=== PATIENT | male | born 2005 | race Caucasian/White ===

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

== ENCOUNTER 2025-04-07 16:56 | Emergency (ER) | payer OTHER, MEDICAID, SELFPAY ==
[2025-04-07 17:29] VITALS: BP 132/77; PULSE 78; RESP 16; TEMP 36.8; O2SAT 99
--- NOTE | 2025-04-07 17:44 | PC.NURSE ---
Pt to intake desk and states I am just letting you know I am gonna leave. I will go to Urgent Care tomorrow or something. Pt declined to be seen after encouragement, pt states he will return with worsening or concerning sx's. Pt ambulated out in NAD. Steady gait.
--- OUTSIDE RECORDS SUMMARY | 2025-04-07 19:08 | XMS_ITS | Continuity of Care Document ---
Author Name [facility] Organization [facility] Care Team Providers Care Stars Analytical Lead Name Role Phone [facility] Unavailable Unavailable Vital Signs Combined list of inpatient and outpatient Vital Signs from [facility] and [facility], ranging from 12 months to all on record, depending upon the facility. Vital Sign Value Date Comments Source Systolic Blood Pressure 119 mm[Hg] 02/18/2024 13:15:[address] [place] [address] Diastolic Blood Pressure 73 mm[Hg] 02/18/2024 13:15:[address] [place] [address] Peripheral Pulse Rate 99 bpm 02/18/2024 13:15:[address] [place] [address] Procedures Combined list of: 1) Procedures from [facility] facilities going back up to thelast 18 months, not all [place] non-surgical procedures are included; 2) All procedures from the [facility] facilities. Procedure Procedure Type Code Date Perfomer Comments Sourc e No data available for this section Ambulatory P harmacy Social History Combined list of available smoking, tobacco, and other social history from [facility] and [facility] facilities. Social History Type Response Date Comment Sourc e Sex Representation Male (finding) 02/11/2024 Un known Organization Sexual Orientation Ambula tory Pharmacy Gender identity Ambulator y Pharmacy Assessment and Plan Combined list of future care activities from [facility] and [facility] facilities (e.g., assessment and plan notes, appointments, orders, and referrals). Additional future care activities may be listed in the Plan of Care section. Result Assessment and Plan Date Source Assessment and Plan Extracted from:Title : Education Note Author: REAL BHARDWAJ Date: 02/18/24 04/08/[address] [place] [address] Functional Status Combined list of recent functional and cognitive assessments recorded at [facility] Functional [place] Measurement (FIM) Scale: 1 = Total Assistance (Subject = 0% +), 2 = Maximal Assistance (Subject = 25% +), 3 = Moderate Assistance (Subject = 50% +), 4 = Minimal Assistance (Subject = 75% +), 5 = Supervision, 6 = Modified [place] (Device), 7 = Complete [place] (Timely, Safely). Assessment Date/Time Source Assessment Type Assessment Skill Assessment Score Assessment Details No data available for this section
--- OUTSIDE RECORDS SUMMARY | 2025-04-07 19:09 | XMS_ITS | Clinical Summary ---
Author Organization [facility] Address [address] [place] [address] Phone Care Team Providers Care Clinical Nurse Leader Name Role Phone Provider, Unknown Primary Care Provider Unavaila ble Social History Tobacco Use Types Packs/Day Years Used Date Smoking Tobacco: Never Assessed Sex and Gender Information Value Date Recorded Sex Assigned at Not on file Legal Sex Male 5:37 PM [employer] Gender Identity Not on file Sexual Orientation Not on file Plan of Treatment Not on file Insurance [facility] MEDICAID [place] Care Teams Clinical Nurse Leader Relationship Specialty Start Date End Date Provider, Unknown UNKNOWN PCP - General 02/05/22
--- OUTSIDE RECORDS SUMMARY | 2025-04-07 19:09 | XMS_ITS ---
Author Organization Unknown Address [address] [place] [phone] Phone Care Team Providers Care Master Esthetician Name Role Phone SANJIV Hargrove Attending Unavailable NO PHYSICIAN Primary Unavailable Results URINALYSIS NON-AUTO W/O MICR O - Collect Date/Time: 10/31/2023 13:32 [facility] ID: [id number] [address] [place], [place], [phone] LOINC: Test Value Unit Reference Range Code Code System Flag TEST NAME URINALYSIS Color YELLOW Clarity CLEAR Spec Grav 1.020 NORMAL: 1.001-1.035 PH 6.0 NORMAL: 5 - 6 Leuk Est NEGATIVE NORMAL: NEGATIVE Nitrates Negative NORMAL: NEGATIVE Protein NEGATIVE NORMAL: NEGATIVE Glucose NEGATIVE NORMAL: NEGATIVE Manual Clinitest NOT APPLICABLE Ketones NEGATIVE NORMAL: NEGATIVE Urobilinogen NORMAL NORMAL: 0-1 mg/dl Bilirubin NEGATIVE NORMAL: NEGATIVE Blood NEGATIVE NORMAL: NEGATIVE Social History Type Status Start Date End Date Code Code Syst em Sex Male Vital Signs Vital Sign Value Unit [place]it[place] Value Scituate Unit Date/Time Recent/Initial? Code Code System Body Mass Index 23.24 kg/m2 10/31/2023 13:28 Initial 84005 -5 [facility] Body Mass Index Percentile 60 % 10/31/2023 13:28 Initial 83219 -9 LOINC Systolic Blood Pressure 122 mm[Hg] 10/31/2023 13:28 Initial 8480- 6 LOINC Diastolic Blood Pressure 66 mm[Hg] 10/31/2023 13:28 Initial 8462- 4 LOINC Body Surface Area 1.91 m2 10/31/2023 13:28 Initial 3140- 1 LOINC Height 177.800 0 cm 70.00 in 10/31/2023 13:28 Initial 8302- 2 LOINC Pulse 66.0 /min 10/31/2023 13:28 Initial 8867- 4 LOINC Temperature 36.9 Zaira 98.4 F 10/31/19 13:28 Initial 8310- 5 LOINC Weight 73.48 kg 162.00 lbs 10/31/2023 13:28 Initial 01981 -7 LOINC Medications Medication Start Date End Date Route Frequency Dose Code Code System Medication Instructions Home Meds Doxycycline 100MG Oral Capsule 10/31/2023 Unknown By mouth Twice a day 1 TABLET 7386026 RxNorm 1 TABLET By mouth Twice a day for 7 days Assessment Diagnostics: Urinalysis Urine gc, chlamydia and trich testing ordered. Assessment/Plan: 1. Chlamydia exposure -Doxycycline as prescribed to completion. -No sexual contact until all tests are completed and resulted and all indicated treatment is completed. -If any STD tests are positive inform all partners or discuss with your local health department and provide names of sexual partners so they can ensure appropriate treatment. -Use condoms when resuming sex. -Retesting within 3 months. 2. High Risk Sexual Behavior -HIV, HSV and hepatitis testing declined. -Encouraged safe sex practices. 3. Dysuria Differentials: UTI, STD Follow-up: PCP or CC in 2 days if not improving, otherwise follow-up with PCP as needed. ER if any symptoms become severe. * This plan has been reviewed with the patient. Questions and concerns addressed. Patient verbalized understanding of the treatment plan and the need for follow up. This examination was transcribed using the App[employer] voice recognition system without a human research development director. To expedite patient care, this report has not been adjusted for typographical, or medical, or syntax by a trained hospital medical assistant. Hospital Discharge Instructions Should you have any questions prior to discharge, please contact a member of your healthcare team. If you have left the hospital and have any questions, please contact your primary care physician. Reason For Referral No Data Found Plan of Treatment Future Order Description Future Order Date Futu re Order Loinc: TRICHOMONAS VAGINALIS MALE RNA QUAL 10/31/2023 LOINC: 68133-0 GC PCR [facility] 10/31/2023 LOINC: 65105-6 CHLAMYDIA PCR [facility] 10/31/2023 LOINC: 72751- 5 Encounters Encounter Diagnosis Start Date Code Code Sys tem High risk heterosexual behavior 10/31/2023 [id number] SNOMED-CT Personal Care Team Section Progress Notes [facility] 10/31/2023 14:38 Date of Service: 10/31/2023 [facility] Visit MARLINE Lanza Chief Complaint: PERSONAL History of Present Illness: Age: 17 years The patient is a 17-year-old male presenting to [facility] today for STD exposure to chlamydia. He is currently sexually active with one partner and does not use condoms. He has a history of chlamydia infection a few months ago and completed treatment and was re-tested a few weeks later with a negative result. He does complain of an irritated feeling when he urinates. Otherwise denies any other symptoms. Patient denies fever/chills, headache, dizziness, ear pain, nasal congestion/drainage, sore throat, cough, chest pain/tightness/heaviness, shortness of breath, wheezing, abdominal pain, and/or nausea/vomiting/diarrhea. PCP is Natalie Hawkins. Tobacco use: vapes Marijuana use: current user Allergy Table: No Allergies Available Vital Signs: This Visit HtWt Date/Time BP (mm/Hg) BP Position/Site Heart Rate Resp Temp (F) SPO2% Pain Score Height (in) Weight (lbs/ozs) BMI Head Cir (cm) 10/31/2023 13:28 122/66 Sitting/Left Arm 66 98.4 Tympanic 70 in 162.0 23.24 PHYSICAL EXAM: GENERAL: Alert, well-appearing, in no acute distress. nontoxic. RESPIRATORY: Normal respiratory effort. Lungs were clear to auscultation. CARDIOVASCULAR: Heart regular rate and rhythm without murmurs or gallops. ABDOMEN: Soft, non-distended, non- tender. Bowel sounds were normal. No hepatosplenomegaly. No rebound or guarding. No CVA or suprapubic tenderness noted. NEUROLOGIC: Alert and oriented. Speech clear. Responding appropriately to exam. Moving extremities equally. Gait steady. SKIN: warm and dry, well perfused. Capillary refill less than 3 seconds. PSYCHIATRIC: Cooperative. Normal memory. Conversant, normal affect. Lab Results: This Visit Test Results Units Reference Range Ordered Collected Status TEST NAME URINALYSIS URINALYSIS 10/31/2023 13:32 10/31/2023 13:32 final Color YELLOW YELLOW 10/31/2023 13:32 10/31/2023 13:32 final Clarity CLEAR CLEAR 10/31/2023 13:32 10/31/2023 13:32 final Spec Grav 1.020 1.020 NORMAL: 1.001-1.035 10/31/2023 13:32 10/31/2023 13:32 final PH 6.0 6.0 NORMAL: 5 - 6 10/31/2023 13:32 10/31/2023 13:32 final Leuk Est NEGATIVE NEGATIVE NORMAL: NEGATIVE 10/31/2023 13:32 10/31/2023 13:32 final Nitrates Negative Negative NORMAL: NEGATIVE 10/31/2023 13:32 10/31/2023 13:32 final Protein NEGATIVE NEGATIVE NORMAL: NEGATIVE 10/31/2023 13:32 10/31/2023 13:32 final Glucose NEGATIVE NEGATIVE NORMAL: NEGATIVE 10/31/2023 13:32 10/31/2023 13:32 final Manual Clinitest NOT APPLICABLE NOT APPLICABLE 10/31/2023 13:32 10/31/2023 13:32 final Ketones NEGATIVE NEGATIVE NORMAL: NEGATIVE 10/31/2023 13:32 10/31/2023 13:32 final Urobilinogen NORMAL NORMAL NORMAL: 0-1 mg/dl 10/31/2023 13:32 10/31/2023 13:32 final Bilirubin NEGATIVE NEGATIVE NORMAL: NEGATIVE 10/31/2023 13:32 10/31/2023 13:32 final Blood NEGATIVE NEGATIVE NORMAL: NEGATIVE 10/31/2023 13:32 10/31/2023 13:32 final Diagnostics: Urinalysis Urine gc, chlamydia and trich testing ordered. Assessment/Plan: 1. Chlamydia exposure -Doxycycline as prescribed to completion. -No sexual contact until all tests are completed and resulted and all indicated treatment is completed. -If any STD tests are positive inform all partners or discuss with your local health department and provide names of sexual partners so they can ensure appropriate treatment. -Use condoms when resuming sex. -Retesting within 3 months. 2. High Risk Sexual Behavior -HIV, HSV and hepatitis testing declined. -Encouraged safe sex practices. 3. Dysuria Differentials: UTI, STD Follow-up: PCP or CC in 2 days if not improving, otherwise follow-up with PCP as needed. ER if any symptoms become severe. * This plan has been reviewed with the patient. Questions and concerns addressed. Patient verbalized understanding of the treatment plan and the need for follow up. This examination was transcribed using the [employer] voice recognition system without a human research development director. To expedite patient care, this report has not been adjusted for typographical, or medical, or syntax by a trained hospital medical assistant. Meds Given This Visit: Meds ordered and administered this visit: No Current Medications Available Discharge Med List: Discharge Medications Medication Special Instructions Start Date Prescribing MD Doxycycline 100MG Oral Capsule 1 TABLET By mouth Twice a day for 7 days 10/31/2023 SANJIV Hargrove
--- OUTSIDE RECORDS SUMMARY | 2025-04-07 19:09 | XMS_ITS | Encounter Summary ---
Author Organization [facility] Address [address] [place] [address] Phone Care Team Providers Care Director Motion Picture Name Role Phone Provider, Unknown Primary Care Provider Unavaila ble Encounter Details Date Type Department Care Team (Late st Contact Info) Description 02/19/2022 Lab [facility] [address] [place] [address] Angella Angel MD [address] [place] [address] Contact with and (suspected) exposure to covid-19 Social History Tobacco Use Types Packs/Day Years Used Date Smoking Tobacco: Never Assessed Sex and Gender Information Value Date Recorded Sex Assigned at Not on file Legal Sex Male 5:37 PM DAY CARE HOME MOTHER Gender Identity Not on file Sexual Orientation Not on file documented as of this encounter Plan of Treatment Not on file documented as of this encounter Procedures Procedure Name Priority Date/Time Associated Diagnosis Comments SARS-COV-2 BY MOLECULAR Routine 02/19/2022 11:04 AM DAY CARE HOME MOTHER Contact with and (suspected) exposure to covid-19 documented in this encounter Results * SARS-COV-2 BY MOLECULAR (02/19/2022 11:04 AM DAY CARE HOME MOTHER) SARSCOV2 NOT DETECTED (Referen ce Range for this test is Not Detected ) [facility] THERMOFISHER FAST DX 02/21/2022 9:22 PM DAY CARE HOME MOTHER [facility] Comment:This test was perfor med by a RT-PCR method. Other NASAL STRUCTURE / Unknown Non-Phlebotomy Collection / Unknown 02/19/2022 11:04 AM DAY CARE HOME MOTHER 02/19/2022 5:40 PM DAY CARE HOME MOTHER Narrative [facility] - 02/21/2022 9:22 PM DAY CARE HOME MOTHER Authorized Fact Sheets about this test for providers and patients are available at: https://www.fda.gov/medical-devices/nxvybxbdz-xsgpfdrqek-xgjxnug-devices/emergen cy-us e-authorizations us Angella Angel MD MICROBIOLOGY - GENERAL ORDERAB LES Final Result [facility] [address] [place] [address], documented in this encounter Visit Diagnoses Diagnosis Contact with and (suspected) exposure to covid-19 documented in this encounter Additional Health Concerns Infection Onset Date Last Indicated Resolved Time COVID - 19 02/19/2022 02/19/2022 03/01/2022 12:1 6 AM DAY CARE HOME MOTHER Respiratory Rule-Out 02/22/2022 02/22/2022 022 7:31 PM DAY CARE HOME MOTHER documented as of this encounter Care Teams Director Motion Picture Relationship Specialty Start Date End Date Provider, Unknown UNKNOWN PCP - General 02/05/22 documented as of this encounter
--- OUTSIDE RECORDS SUMMARY | 2025-04-07 19:09 | XMS_ITS | Encounter Summary ---
Author Organization [facility] Address [address] [place] [address] Care Team Providers Care Agent Contract Clerk Name Role Phone Tori Vieira NP Primary Care Provider Unavailabl e None, Provider Primary Care Provider Unavaila ble Encounter Details Date Type Department Care Team (Late st Contact Info) Description 08/25/2020 FINXI Message [facility] Patient Accounts [address] [place] [address] Nadine, [facility] Provider Notice of account balance Social History Tobacco Use Types Packs/Day Years Used Date Smoking Tobacco: Never Smokeless Tobacco: Never Alcohol Use Standard Drinks/Week Comments Never 0 (1 standard drink = 0.6 oz pur e alcohol) AUDIT-C Answer Date Recorded Q1: How often do you have a drink containing alc ohol? 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 No / Unsure 08/18/2020 9:08 AM CDT documented as of this encounter Plan of Treatment Not on file documented as of this encounter Visit Diagnoses Not on filedocumented in this encounter Additional Health Concerns Infection Onset Date Last Indicated Resolved Time COVID-19 Rule Out 01/31/2021 01/31/2021 02/01/2021 1:47 AM CDT Assessment Noted Time PHQ-9 Depression Total Score: 6 07/23/19 1:13 PM CDT documented as of this encounter Care Teams Agent Contract Clerk Relationship Specialty Start Date End Date Tori Vieira, PAL PCP - General NURSE PRACTITIONER 05/30/20 12/01/23 None, Provider, PCP - General UNKNOWN PHYSICIAN SPECIALTY 12/02/23 documented as of this encounter
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
--- OUTSIDE RECORDS SUMMARY | 2025-04-07 19:09 | XMS_ITS | Encounter Summary ---
Author Organization [facility] Address [address] [place] [address] Phone Care Team Providers Care Entry Level Chemist Name Role Phone Provider, Unknown Primary Care Provider Unavaila ble Encounter Details Date Type Department Care Team (Late st Contact Info) Description 02/24/2022 Lab Requisition [facility] Laboratory Services [address] [place] [id number] Angella Angel MD [address] [place] [address] Acute pharyngitis, unspecified Social History Tobacco Use Types Packs/Day Years Used Date Smoking Tobacco: Never Assessed Sex and Gender Information Value Date Recorded Sex Assigned at Not on file 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 Gender Identity Not on file Sexual Orientation Not on file documented as of this encounter Plan of Treatment Not on file documented as of this encounter Procedures Procedure Name Priority Date/Time Associated Diagnosis Comments GROUP A STREP SCREEN RAPID, CONFIRM IF NEGATIVE Routine 02/24/2022 1:00 PM TRANSPORTATION EQUIPMENT PAINTER Acute pharyngitis, unspecified CULTURE, GRP A STREPTOCOCCUS, CULT ONLY Routine 02/24/2022 1:00 PM TRANSPORTATION EQUIPMENT PAINTER Acute pharyngitis, unspecified documented in this encounter Results * CULTURE, GRP A STREPTOCOCCUS, CULT ONLY (02/24/2022 1:00 PM TRANSPORTATION EQUIPMENT PAINTER) CULTURE RESULTS NO STREP PYOGENES (GROUP A BETA HEMOLYTIC STREP) ISOLATED AFTER 2 DAYS 02/27/2022 8:51 AM TRANSPORTATION EQUIPMENT PAINTER [facility] Other SPECIMEN FROM THROAT / Unknown Non-Phlebotomy Collection / Unknown 02/24/2022 1:00 PM TRANSPORTATION EQUIPMENT PAINTER 02/24/2022 3:59 PM TRANSPORTATION EQUIPMENT PAINTER us Angella Angel MD MICROBIOLOGY - GENERAL ORDERAB LES Final Result Performing Organization Address [facility]/ZIP Co de Phone Number [facility] [address] [place] [address], [place] [phone] * GROUP A STREP SCREEN RPD, CULTURE IF NEG (02/24/2022 1:00 PM TRANSPORTATION EQUIPMENT PAINTER) MICRO TEST RESULT Presumptive Negative for Group A Streptococcus Presumptive Negative for Group A Streptococcus [facility] QUIDEL SUMA B 02/24/2022 4:41 PM TRANSPORTATION EQUIPMENT PAINTER [facility] Other SPECIMEN FROM THROAT / Unknown Non-Phlebotomy Collection / Unknown 02/24/2022 1:00 PM TRANSPORTATION EQUIPMENT PAINTER 02/24/2022 3:59 PM TRANSPORTATION EQUIPMENT PAINTER us Angella Angel MD MICROBIOLOGY - GENERAL ORDERAB LES Final Result Performing Organization Address [facility] Co de Phone Number [place] [phone] [place] [address], [place] [phone] documented in this encounter Visit Diagnoses Diagnosis Acute pharyngitis, unspecified documented in this encounter Additional Health Concerns Infection Onset Date Last Indicated Resolved Time COVID - 19 02/19/2022 02/19/2022 03/01/2022 12:1 6 AM TRANSPORTATION EQUIPMENT PAINTER documented as of this encounter Care Teams Entry Level Chemist Relationship Specialty Start Date End Date Provider, Unknown UNKNOWN PCP - General 02/05/22 documented as of this encounter
--- OUTSIDE RECORDS SUMMARY | 2025-04-07 19:09 | XMS_ITS | Encounter Summary ---
Author Organization [facility] Address [address] [place] [address] Phone Care Team Providers Care Lift Truck Operator Name Role Phone Provider, Unknown Primary Care Provider Unavaila ble Encounter Details Date Type Department Care Team (Late st Contact Info) Description 02/22/2022 Lab Requisition [facility] Laboratory Services [address] [place] [address] Marcos Mejía, DO [address] [place] [address] Headache, unspecified; Myalgia, other site Social History Tobacco Use Types Packs/Day Years Used Date Smoking Tobacco: Never Assessed Sex and Gender Information Value Date Recorded Sex Assigned at Not on file Legal Sex Male 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 Gender Identity Not on file Sexual Orientation Not on file documented as of this encounter Plan of Treatment Not on file documented as of this encounter Procedures Procedure Name Priority Date/Time Associated Diagnosis Comments INFLUENZA A & B ANTIGENS RAPID Routine 02/22/2022 5:00 PM ODD JOB LABORER Headache, unspecified Myalgia, other site documented in this encounter Results * INFLUENZA A & B ANTIGENS RAPID (02/22/2022 5:00 PM ODD JOB LABORER) Rapid Influenza A PRESUMPTIVE NEGATIVE FOR THE PRESENCE OF INFLUENZA A ANTIGEN PRESUMPTIVE NEGATIVE FOR THE PRESENCE OF INFLUENZA A ANTIGEN, INDETERMINATE [facility] QUIDEL SUMA A 02/22/2022 7:31 PM ODD JOB LABORER [facility] Rapid Influenza B PRESUMPTIVE NEGATIVE FOR THE PRESENCE OF INFLUENZA B ANTIGEN PRESUMPTIVE NEGATIVE FOR THE PRESENCE OF INFLUENZA B ANTIGEN, INDETERMINATE [facility] QUIDEL SUMA A 02/22/2022 7:31 PM ODD JOB LABORER [facility] Other No Phlebotomy Charged / Unknown 02/22/2022 5:00 PM ODD JOB LABORER 02/22/2022 6:01 PM ODD JOB LABORER Marcos Mejía DO MICROBIOLOGY - GENERAL O RDERABLES Final Result Performing Organization Address [facility]/State/[facility] Co de Phone Number [address] [address], documented in this encounter Visit Diagnoses Diagnosis Headache, unspecified Myalgia, other site documented in this encounter Additional Health Concerns Infection Onset Date Last Indicated Resolved Time COVID - 19 02/19/2022 02/19/2022 03/01/2022 12:1 6 AM ODD JOB LABORER Respiratory Rule-Out 02/22/2022 02/22/2022 022 7:31 PM ODD JOB LABORER documented as of this encounter Care Teams Lift Truck Operator Relationship Specialty Start Date End Date Provider, Unknown UNKNOWN PCP - General 02/05/22 documented as of this encounter
--- OUTSIDE RECORDS SUMMARY | 2025-04-07 19:09 | XMS_ITS | Clinical Summary ---
Author Organization [facility] Address [address] [place] [address] Care Team Providers Care Exterior Designer Name Role Phone Uzma Oliva MD Primary Care Provider [phone] Source Comments [facility],non-owned Affiliates and Associated Physician Practices is amultiple site organization consisting of ambulatory clinics and hospital sitesin [place], [place], [place] and [place]. This disclosure is being madepursuant to the Care Everywhere program and may not contain all information available regarding this patient. Last updated 17.[facility] Allergies No known active allergies Medications * Be aware that medications may not be up to date on this document. Alwaysverify current medications with the patient. omeprazole (PRILOSEC) 20 MG capsule Take 1 (one) capsule by mouth once daily 30 capsule 3 1 Active Additional Information Patient not taking.Reported on 01/24/2021 citalopram (CELEXA) 20 MG tablet Take 20mg daily for 2 weeks, then 10mg daily for 2 weeks. 21 tablet 1 Active sertraline (ZOLOFT) 25 MG tablet Take 1 (one) tablet by mouth once daily 30 tablet 1 Active Respiratory Therapy Supplies (NEBULIZER/TUBI NG/MOUTHPIECE) KIT Use 1 kit once daily as needed 1 kit 1 1 Active albuterol (ACCUNEB) 1.25 MG/3ML nebulizer solution Inhale 3 mL by mouth every 4 hours as needed 1 Active Active Problems Problem Noted Date Diagnosed Date Nausea and vomiting 07/14/2020 Anxiety 07/14/2020 Mild intermittent asthma without complication Overview (12/05/2015): Flare ups in fall and spring, uses inhaler during football practice as well. Asthma Overview (12/11/2017): only needs albuterol when ill and sometimes when physically acitve Immunizations Immunization Administration Dates Next Due DTAP 5 PERTUSSIS ANTIGENS 11/20/2010,,06/26/2005, 6,02/21/2005 DTAP/IPV 11/20/2010, 6,04/24/2005, 5,2004 HEP B VACCINE, PED/ADOL 03/25/2006,04/24/2005, HIB-PRP-T 4 DOSE 03/25/2006,04/24/2005, 5 MENINGOCOCCAL ACWY (MCV4P) VAC IM 11/17/2016 MMR 11/20/2010,03/25/2006 MMR/VARICELLA 11/20/2010,03/25/2006 POLIO IPV 11/20/2010, 6,04/24/2005, 5 TDAP (7yrs+) 11/17/2016 VARICELLA 11/20/2010,01/02/2006 Family History Medical History Relation Name Comments Asthma Brother Cancer Maternal Grandfather Diabetes - Type 2 Maternal Grandfather Cancer Maternal Grandmother Asthma Mother CAD (Coronary Artery Disease) Paternal Grandfather Cancer Paternal Grandfather Diabetes - Type 2 Paternal Grandfather High Blood Pressure Paternal Grandfather High Cholesterol Paternal Grandfather Relation Name Status Comments Brother Maternal Grandfather Maternal Grandmother Mother Alive Paternal Grandfather Social History Tobacco Use Types Packs/Day Years Used Date Smoking Tobacco: Never Smokeless Tobacco: Never PHQ-2 Answer Date Recorded PHQ2 TOTAL SCORE 4 01/25/2021 Sex and Gender Information Value Date Recorded Sex Assigned at Not on file Legal Sex Male 11:58 AM CDT Gender Identity Not on file Sexual Orientation Not on file Last Filed Vital Signs Vital Sign Reading Time Taken Comments Blood Pressure 99/72 08/22/2020 1:15 PM CDT Pulse 65 08/22/2020 1:15 PM CDT Temperature 37 C (98.6 F) 01/24/2021 1:04 PM CDT Respiratory Rate 12 08/22/2020 1:15 PM CDT Oxygen Saturation 100% 08/22/2020 1:15 PM CDT Inhaled Oxygen Concentration - - Weight 61.9 kg (136 lb 6.4 oz) 01/24/2021 1:04 P M CDT Height 175 cm (5' 8.9) 08/22/2020 11:54 AM CDT Body Mass Index - - Plan of Treatment Health Maintenance Due Date Last Done Comments HIV SCREENING 12/22/2019 HPV VACCINE (1 - Male 3-dose series) 12/22/2019 MENINGOCOCCAL (Group B) VACCINE SHARED DECISION-MAKING (1 of 2 - Standard) 2020 HEPATITIS C SCREENING 12/17/2022 PNEUMOCOCCAL VACCINE (1 of 2 - PCV) 12/22/2023 DEPRESSION SCREENING 04/08/2024 COVID-19 VACCINE (1 - season) 2024 INFLUENZA VACCINE (#1) 2024 DTAP/TDAP/TD VACCINES (7 - Td or Tdap) 11/17/2026 11/17/2016, 11/20/2010, 11/20/2010, Additional history exists ZOSTER VACCINE (1 of 2) 2054 HEPATITIS B VACCINE Completed 03/25/2006, 04/24/2005, 02/21/2005 HIB VACCINE Completed 03/25/2006, 04/08, 02/21/2005 MENINGOCOCCAL GROUPS A/C/Y/W VACCINE Aged Out 11/17/2016 No longer eligible based on patient's age to complete this topic Insurance [facility] MEDICAID [facility] ANTHEM [facility] C[facility] C[facility] MEDICAID Care Teams Exterior Designer Relationship Specialty Start Date End Date Uzma Oliva MD [address] [place] [phone] PCP - General Pediatrics 01/24/21
--- OUTSIDE RECORDS SUMMARY | 2025-04-07 19:09 | XMS_ITS | Encounter Summary ---
Author Organization [facility] Address [address] [place] [address] Care Team Providers Care Strip Roller Name Role Phone Uzma Oliva MD Primary Care Provider Reason for Visit * Reason Onset Date Comments Results 08/25/2020 Encounter Details Date Type Department Care Team (Late st Contact Info) Description 08/25/2020 Telephone [facility] - [address] [place] [phone] Iza Dubose MD [address] [place] [id number] Results Social History Tobacco Use Types Packs/Day Years Used Date Smoking Tobacco: Never Smokeless Tobacco: Never Sex and Gender Information Value Date Recorded Sex Assigned at Not on file Legal Sex Male 11:58 AM CDT Gender Identity Not on file Sexual Orientation Not on file documented as of this encounter Functional Status * Is person deaf or have serious hearing difficulty? Answer Date of Assessment Author No 08/22/2020 12:59 PM CDT Aiyana Fowler RN * Is person blind or have serious difficulty seeing? Answer Date of Assessment Author No 08/22/2020 12:59 PM CDT Aiyana Fowler RN * Does person have serious difficulty walking/climbing stairs? Answer Date of Assessment Author No 08/22/2020 12:59 PM CDT Aiyana Fowler RN * Does person have difficulty dressing/bathing? Answer Date of Assessment Author No 08/22/2020 12:59 PM CDT Kisner, Aiyana M, RN * Does person have difficulty doing errands alone? Answer Date of Assessment Author Yes 08/22/2020 12:59 PM CDT Aiyana Fowler RN documented as of this encounter Mental Status * Does person have difficulty concentrating/remembering/making decisions? Answer Entry Date Author No 08/22/2020 12:59 PM CDT Aiyana Fowler RN documented in this encounter Miscellaneous Notes * Telephone Encounter - Victoria Sanchez - 08/26/2020 8:32 AM CDT Spoke with mom, notified her of negative lab and biopsy results. Mom stated that she doesn't have any questions at this time. * Telephone Encounter - Lili Jules RN - 08/26/2020 8:22 AM CDT Left a requesting family call the office. * Telephone Encounter - Iza Dubose MD - 08/25/2020 4:57 PM CDT Labs: lipase, sed rate, celiac are Negative. Biopsies are back too and they too are Fine. documented in this encounter Plan of Treatment Not on file documented as of this encounter Visit Diagnoses Not on filedocumented in this encounter Care Teams Strip Roller Relationship Specialty Start Date End Date Uzma Oliva MD [address] [place] [phone] PCP - General Pediatrics 01/24/21 documented as of this encounter
--- OUTSIDE RECORDS SUMMARY | 2025-04-07 19:09 | XMS_ITS | Encounter Summary ---
Author Organization [facility] Address [address] [place] [address] Care Team Providers Care Personal Property Appraiser Name Role Phone Tori Vieira NP Primary Care Provider Unavailabl e None, Provider Primary Care Provider Unavaila ble Encounter Details Date Type Department Care Team (Late st Contact Info) Description 08/23/2020 [facility] Message Enc [facility] - [address] [place], [place] [phone] Mychart, [facility] Provider thyroid recheck Social History Tobacco Use Types Packs/Day Years [...] on file Legal Sex Male 11:22 PM FRAMEMAN Gender Identity Not on file Sexual Orientation [...] documented as of this encounter Care Teams Personal Property Appraiser Relationship Specialty Start Date End Date Tori Vieira, FIRE EXTINGUISHER SPRINKLER INSPECTOR PCP - General NURSE PRACTITIONER 05/30/20 12/01/23 None, Provider, PCP - General UNKNOWN PHYSICIAN SPECIALTY 12/02/23 documented as of this encounter
--- OUTSIDE RECORDS SUMMARY | 2025-04-07 19:09 | XMS_ITS | Encounter Summary ---
Author Organization [facility] Address [address] [place] [address] Phone Care Team Providers Care Logistics Assistant Name Role Phone Provider, Unknown Primary Care Provider Unavaila ble Encounter Details Date Type Department Care Team (Late st Contact Info) Description 03/02/2022 Lab Requisition [facility] Laboratory Services [address] [place] [phone] Christopher Graham MD [address] [place] [address] Other terminal gauger (current) drug therapy Social History Tobacco Use Types Packs/Day Years Used Date Smoking Tobacco: Never Assessed Sex and Gender Information Value Date Recorded Sex Assigned at Not on file Legal Sex Male 5:37 PM FINGER COBBLER Gender Identity Not on file Sexual Orientation Not on file documented as of this encounter Plan of Treatment Not on file documented as of this encounter Procedures Procedure Name Priority Date/Time Associated Diagnosis Comments VITAMIN D, 25 HYDROXY TOTAL Routine 03/02/2022 9:52 AM FINGER COBBLER Other terminal gauger (current) drug therapy CBC WITH AUTO DIFFERENTIAL Routine 03/02/2022 9:52 AM FINGER COBBLER Other terminal gauger (current) drug therapy VITAMIN B12 Routine 03/02/2022 9:52 AM FINGER COBBLER Other terminal gauger (current) drug therapy THYROID STIMULATING HORMONE (TSH) Routine 03/02/2022 9:52 AM FINGER COBBLER Other terminal gauger (current) drug therapy LIPID PANEL Routine 03/02/2022 9:52 AM FINGER COBBLER Other chcf (current) drug therapy FOLIC ACID (FOLATE) Routine 03/02/2022 9 :52 AM FINGER COBBLER Other chcf (current) drug therapy CMP (COMPREHENSIVE METABOLIC PANEL) Routine 03/02/2022 9:52 AM FINGER COBBLER Other chcf (current) drug therapy COMPLETE BLOOD COUNT (CBC) WITH DIFF Routine 03/02/2022 9:52 AM FINGER COBBLER Other chcf (current) drug therapy documented in this encounter Results * (ABNORMAL) CBC WITH AUTO DIFFERENTIAL (03/02/2022 9:52 AM FINGER COBBLER) WBC 5.35 3.80 - 9.80 10(3)/mcL 03/02/2022 12:11 PM [facility] RBC 5.13 4.03 - 5.29 10(6)/mcL 03/02/2022 12:11 PM [facility] HEMOGLOBIN (HGB) 14.7(H) 11.0 - 14.5 g/dL 03/02/2022 12:11 PM [facility] HEMATOCRIT (HCT) 45.3(H) 33.9 - 43.5 % 03/02/2022 12:11 PM [facility] MCV 88.3 76.7 - 89.2 fL 03/02/2022 12:11 PM [facility] MCH 28.7 25.2 - 30.2 pg 03/02/2022 12:11 PM [facility] MCHC 32.5 31.8 - 34.8 g/dL 03/02/2022 12:11 PM [facility] PLATELET COUNT 279 175 - 332 10(3)/[facility] 03/02/2022 12:11 PM [facility] RDW 11.9(L) 12.4 - 14.5 % 03/02/2022 12:11 PM [facility] MPV 10.0 9.6 - 11.8 fL 03/02/2022 12:11 PM [facility] NEUTROPHILS 59.7 48.0 - 85.0 % 03/02/2022 12:11 PM [facility] LYMPHOCYTES 26.2 6.0 - 33.0 % 03/02/2022 12:11 PM [facility] MONOCYTES 9.2 3.0 - 13.0 % 03/02/2022 12:11 PM [facility] EOSINOPHILS 4.3(H) 0.0 - 3.0 % 03/02/2022 12:11 PM [facility] BASOPHILS 0.6 0.0 - 1.0 % 03/02/2022 12:11 PM [facility] ABSOLUTE NEUTROPHILS 3.20 2.80 - 11.10 10(3)/[facility] 03/02/2022 12:11 PM [facility] ABSOLUTE LYMPHOCYTES 1.40 0.40 - 2.50 10(3)/[facility] 03/02/2022 12:11 PM [facility] ABSOLUTE MONOCYTES 0.49 0.40 - 1.30 10(3)/[facility] 03/02/2022 12:11 PM [facility] ABSOLUTE EOSINOPHIL 0.23 0.00 - 0.30 10(3)/[facility] 03/02/2022 12:11 PM [facility] ABSOLUTE BASOPHILS 0.03 0.00 - 0.10 10(3)/[facility] 03/02/2022 12:11 PM [facility] NRBC PER 100 WBC 0 03/02/20 12:11 PM [facility] Blood Venipuncture / Unknown 03/02/2022 9:52 AM FINGER COBBLER 03/02/2022 12:06 PM FINGER COBBLER us Christopher Graham MD HEMATOLOGY ORDERABLES Final R esult [facility] [address] [place] [address], [place] [phone] * VITAMIN D, 25 HYDROXY TOTAL (03/02/2022 9:52 AM FINGER COBBLER) VITAMIN D, 25 HYDROX 24 ng/mL [facility] ARCH [id number] B 03/02/2022 12:59 PM FINGER COBBLER [facility] Blood Venipuncture / Unknown 03/02/2022 9:52 AM FINGER COBBLER 03/02/2022 12:06 PM FINGER COBBLER Narrative [facility] - 03/02/2022 12:59 PM FINGER COBBLER Published reference ranges for Vitamin D vary depending on time and place and method of testing, and on patient's age, sex, ethnicity and levels of other measured analytes such as parathormone, calcium and phosphorus. The result should be evaluated in conjunction with clinical findings and suspicions. [place] [employer] and Endocrine Clinical Practice Guidelines: Status Vitamin D levels (ng/mL) Deficient <=20 At risk of inadequacy 21-29 Sufficient 30-100 Centers of Disease Control and Prevention Guidelines: Status Vitamin D levels (ng/mL) Deficient <13 At risk of inadequacy 13-19 Sufficient 20-50 Possibly harmful >50 References: [place] [employer], 2010 Dietary reference intakes for calcium and vitamin D. [place]: The National Academies Press. Joyce M, Kassandra N, Caridad MELTON, et al., Evaluation, treatment, and prevention of Vitamin D deficiency: an Endocrinology Clinical Practice Guideline. JCEM 2011 96: 7 1465-8663. Melinda A, Tony C, Jos D, et al., Vitamin D Status: [place], 5676-7457, [facility] data brief, no. 59, [place]: National Center for Health Statistics. 2011. us Christopher Graham MD CHEMISTRY ORDERABLES Final Re sult [facility] [address] [place] [address], * VITAMIN B12 (03/02/2022 9:52 AM FINGER COBBLER) VITAMIN B12 594 213 - 816 pg/mL [facility] ARCH [id number] B 03/02/2022 12:59 PM FINGER COBBLER [facility] Blood Venipuncture / Unknown 03/02/2022 9:52 AM FINGER COBBLER 03/02/2022 12:06 PM FINGER COBBLER us Christopher Graham MD CHEMISTRY ORDERABLES Final Re sult Performing Organization Address [facility]/ZIP Co de Phone Number [facility] [address] [place] [address], [place] [phone] * THYROID STIMULATING HORMONE (TSH) (03/02/2022 9:52 AM FINGER COBBLER) TSH 1.323 0.300 - 5.000 mIU/L [facility] ARCH [id number] B 03/02/2022 12:48 PM FINGER COBBLER [facility] Blood Venipuncture / Unknown 03/02/2022 9:52 AM FINGER COBBLER 03/02/2022 12:06 PM FINGER COBBLER us Christopher Graham MD CHEMISTRY ORDERABLES Final Re sult Performing Organization Address [facility]/ZIP Co de Phone Number [place] [address], [place] [phone] * FOLIC ACID (FOLATE) (03/02/2022 9:52 AM FINGER COBBLER) FOLATE 18.4 7.0 - 31.4 ng/mL [facility] ARCH [id number] B 03/02/2022 12:59 PM FINGER COBBLER [facility] Blood Venipuncture / Unknown 03/02/2022 9:52 AM FINGER COBBLER 03/02/2022 12:06 PM FINGER COBBLER us Christopher Graham MD CHEMISTRY ORDERABLES Final Re sult Performing Organization Address City/[facility]/ZIP Co de Phone Number [facility] [address] [place] [phone], [place] [phone] * LIPID PANEL (03/02/2022 9:52 AM FINGER COBBLER) CHOLESTEROL 149 <200 mg/dL [facility] ARCH [id number] B 03/02/2022 12:27 PM [facility] TRIGLYCERIDES 66 <150 mg/dL [facility] ARCH [id number] B 03/02/2022 12:27 PM [facility] HDL CHOLESTEROL 61 >40 mg/dL [facility] [id number] B 03/02/2022 12:27 PM [facility] LDL 75 <130 mg/dL [facility] [id number] B 03/02/2022 12:27 PM [facility] VLDL 13 10 - 50 mg/dL [facility] [id number] B 03/02/2022 12:27 PM [facility] CHOL/HDL RATIO 2.4 0.0 - 4.4 [facility] [id number] B 03/02/2022 12:27 PM [facility] NON-HDL CHOLESTEROL 88 <130 mg/dL [facility] ARCH [id number] B 03/02/2022 12:27 PM [facility] Blood Venipuncture / Unknown 03/02/2022 9:52 AM FINGER COBBLER 03/02/2022 12:06 PM [facility] Narrative [facility] - 03/02/2022 12:27 PM [facility] NCEP GUIDELINES FOR LIPID INTERPRETATION TOTAL CHOLESTEROL DESIRABLE <200 BORDERLINE 200-239 HIGH >=240 LDL CHOLESTEROL OPTIMAL <100 NEAR OPTIMAL 100-129 BORDERLINE 130-159 HIGH 160-189 VERY HIGH >=190 HDL CHOLESTEROL LOW <40 *HIGH >=60 TRIGLYCERIDES NORMAL <150 BORDERLINE 150-199 HIGH 200-499 VERY HIGH >=500 *HDL CHOLESTEROL >=60 mg/dL counts as a negative risk factor; its presence removes one risk factor from the total. Based on guidelines from the National Cholesterol Education Program, desirable levels for non HDL cholesterol are 30 mg/dL above target levels for LDL cholesterol. us Christopher Graham MD CHEMISTRY ORDERABLES Final Re sult Performing Organization Address [facility]/State/ZIP Co de Phone Number [facility] [address] [place] [address], [place] [phone] * (ABNORMAL) CMP (COMPREHENSIVE METABOLIC PANEL) (03/02/2022 9:52 AM FINGER COBBLER) SODIUM 141 136 - 145 mmol/L [facility] ARCH [id number] B 03/02/2022 12:27 PM [facility] POTASSIUM 4.3 3.5 - 5.1 mmol/L [facility] [id number] B 03/02/2022 12:27 PM [facility] CHLORIDE 105 98 - 107 mmol/L [facility] ARCH [id number] B 03/02/2022 12:27 PM [facility] CO2, VENOUS 28 22 - 30 mmol/L [facility] [id number] B 03/02/2022 12:27 PM [facility] ANION GAP 8.0 <18.0 mmol/L [facility] ARCH [id number] B 03/02/2022 12:27 PM [facility] GLUCOSE 78 70 - 99 mg/dL [facility] [id number] B 03/02/2022 12:27 PM [facility] BUN 17 9 - 21 mg/dL [facility] ARCH [id number] B 03/02/2022 12:27 PM [facility] CREATININE, BLOOD 0.81 0.70 - 1.30 mg/dL [facility] [id number] B 03/02/2022 12:27 PM [facility] BUN/CREATININE RATIO 21(H) 12 - 20 ratio [facility] [id number] B 03/02/2022 12:27 PM [facility] TOTAL PROTEIN 7.2 6.3 - 8.2 g/dL [facility] ARCH [id number] B 03/02/2022 12:27 PM [facility] ALBUMIN 4.5 3.5 - 5.0 g/dL [facility] ARCH [id number] B 03/02/2022 12:27 PM [facility] A/G RATIO 1.7 1.0 - 2.2 [facility] ARCH [id number] B 03/02/2022 12:27 PM [facility] CALCIUM 10.4 8.7 - 10.5 mg/dL [id number] B 03/02/2022 12:27 PM FINGER COBBLER [facility] T BILI 0.5 0.2 - 1.2 mg/dL [id number] B 03/02/2022 12:27 PM FINGER COBBLER [facility] SGOT (AST) 29 5 - 34 U/L [id number] 03/02/2022 12:27 PM [facility] SGPT (ALT) 17 0 - 55 U/L [id number] 03/02/2022 12:27 PM FINGER COBBLER [facility] ALKALINE PHOSPHATASE 85 <750 U/L [address] 03/02/2022 12:27 PM [facility] GFR, ESTIMATED [facility] TRACK 03/02/2022 12:27 PM [facility] Comment:UNABLE TO CALCULATE GFR, EST. [facility] 03/02/2022 12:27 PM [facility] GFR, EST. NONAFRICAN [facility] 03/02/2022 12:27 PM [facility] Blood Venipuncture / Unknown 03/02/2022 9:52 AM FINGER COBBLER 03/02/2022 12:06 PM FINGER COBBLER us Christopher Graham MD CHEMISTRY ORDERABLES Final Re sult Performing Organization Address [facility]/State/ZIP Co de Phone Number [facility] [address] [place] [address], [place] [phone] documented in this encounter Visit Diagnoses Diagnosis Other chcf (current) drug therapy documented in this encounter Care Teams Logistics Assistant Relationship Specialty Start Date End Date Provider, Unknown UNKNOWN PCP - General 02/05/22 documented as of this encounter
--- OUTSIDE RECORDS SUMMARY | 2025-04-07 19:09 | XMS_ITS ---
Author Organization Unknown Address [address], [place] [id number] Phone Care Team Providers Care Turbo Operator Name Role Phone Tayler Hargrove [facility] Social History Type Status Start Date End Date Code Code Syst em Sex Male Medications Medication Start Date End Date Route Frequency Dose Code Code System Medication Instructions Home Meds Doxycycline 100MG Oral Capsule 10/31/2023 Unknown By mouth Twice a day 1 TABLET [id number] RxNorm 1 TABLET By mouth Twice a day for 7 days Hospital Discharge Instructions Should you have any questions prior to discharge, please contact a member of your healthcare team. If you have left the hospital and have any questions, please contact your primary care physician. Reason For Referral No Data Found Plan of Treatment No Data Found Encounters Encounter Diagnosis Start Date Code Code Sys tem Exposure to sexually transmissible disorder 10/31/2023 [id number] SNOMED-CT Personal Care Team Section
--- OUTSIDE RECORDS SUMMARY | 2025-04-07 19:09 | XMS_ITS | Clinical Summary ---
Author Organization [facility] Address [address] [place] [address] Care Team Providers Care Wound Nurse Name Role Phone Unknown, Notinfile Primary Care Provider Unavail able Tori Cooley MD Unavailable [phone] Allergies No known active allergies Medications ARIPiprazole (ABILIFY) 5 mg tabletIndications: Severe episode of recurrent major depressive disorder, without psychotic features (HCC),MEME (generalized anxiety disorder),Oppositi onal defiant disorder,Mood swing,Attention deficit disorder, unspecified hyperactivity presence,Substance abuse (HCC),Personal history of nonsuicidal self-injury Take 5 mg by mouth nightly 2 Active buprenorphine-nalo xone (SUBOXONE) 2-0.5 mg per filmIndications:[place] bstance abuse (HCC) Place 2 Film under the tongue 3 (three) times a day 2 Active sertraline (ZOLOFT) 100 mg tabletIndications: Severe episode of recurrent major depressive disorder, without psychotic features (HCC),MEME (generalized anxiety disorder),Oppositi onal defiant disorder,Mood swing,Attention deficit disorder, unspecified hyperactivity presence,Substance abuse (HCC),Personal history of nonsuicidal self-injury Take 100 mg by mouth every morning Take 1.5 tab by mouth every morning 2 Active gabapentin (NEURONTIN) 300 mg capsuleIndications :Severe episode of recurrent major depressive disorder, without psychotic features (HCC),MEME (generalized anxiety disorder),Oppositi onal defiant disorder,Mood swing,Attention deficit disorder, unspecified hyperactivity presence,Substance abuse (HCC),Personal history of nonsuicidal self-injury Take 1 capsule (300 mg total) by mouth 3 (three) times a day 270 capsule 3 Active cloNIDine (CATAPRES) 0.1 mg tabletIndications: Severe episode of recurrent major depressive disorder, without psychotic features (HCC),MEME (generalized anxiety disorder),Oppositi onal defiant disorder,Mood swing,Attention deficit disorder, unspecified hyperactivity presence,Substance abuse ([facility]),Personal history of nonsuicidal self-injury Take 1 tablet (0.1 mg total) by mouth 3 (three) times a day as needed (anxiety) 270 tablet 3 Active hydrOXYzine (ATARAX) 25 mg tablet Take 1 tablet (25 mg total) by mouth every 6 (six) hours 60 tablet 5 Active Active Problems Problem Noted Date Diagnosed Date Oppositional defiant disorder 04/26/2022 Moderate episode of recurrent major depressive d isorder 04/26/2022 Anxiety 04/26/2022 Mood swing 04/26/2022 Attention deficit disorder 04/26/2022 Substance abuse 04/26/2022 Immunizations Immunization Administration Dates Next Due DTaP 5 Pertussis 11/20/2010, 6,06/26/2005,04/24/2005,1 2004 Hep B, Adolescent or Pediatric 03/25/2006,2005,02/21/2005 Hib (PRP-T) 03/25/2006,04/24/2005,02/21/2005 IPV 11/20/2010,06/26/2005,04/24/2005 ,02/21/2005 MMR 11/20/2010,03/25/2006 Meningococcal MCV4P (Menactra) 11/17/2016 Tdap 11/17/2016 Varicella 11/20/2010,01/02/2006 Surgical History Surgery Date Site/Laterality Comments NO PAST SURGERIES Medical History Medical History Date Comments Substance abuse (HCC) Family History Medical History Relation Name Comments Mental illness Father Diabetes Maternal Grandfather Colon cancer Maternal Grandmother Cancer Paternal Grandfather melanom a Coronary artery disease Paternal Grandfather Diabetes Paternal Grandfather Heart failure Paternal Grandfather Hyperlipidemia Paternal Grandfather Anxiety disorder Sister 1 Anxiety disorder Sister 2 Relation Name Status Comments Father Alive Maternal Grandfather Maternal Grandmother Paternal Grandfather Sister 1 Alive Sister 2 Alive Social History Tobacco Use Types Packs/Day Years Used Date Smoking Tobacco: Every Day Cigarettes Vaping Smokeless Tobacco: Never Tobacco Cessation:Ready to Q uit: Not Asked; Counseling Given: Not Answered Personal Safety Answer Date Recorded Have you ever been in or are you currently in a harmful physical or emotional relationship or is someone making you feel afraid or unsafe? Denies 05/03/2024 Sex and Gender Information Value Date Recorded Sex Assigned at Not on file Legal Sex Male 10:51 AM CDT Gender Identity Not on file Sexual Orientation Not on file Last Filed Vital Signs Vital Sign Reading Time Taken Comments Blood Pressure 100/86 05/04/2024 2:00 AM CELL CLEANER Pulse 85 05/04/2024 2:00 AM CELL CLEANER Temperature 36.9 C (98.4 F) 05/03/2024 9:36 PM CELL CLEANER Respiratory Rate 22 05/04/2024 2:00 AM CELL CLEANER Oxygen Saturation 98% 05/04/2024 2:00 AM CELL CLEANER Inhaled Oxygen Concentration - - Weight 81.6 kg (180 lb) 05/03/2024 9:27 PM CELL CLEANER Height 177.8 cm (5' 10) 05/03/2024 9:27 PM CELL CLEANER Body Mass Index 25.83 05/03/2024 9:27 PM CELL CLEANER Plan of Treatment Health Maintenance Due Date Last Done Comments Depression Screening 2004 Hepatitis C Screening 2004 HPV Vaccines (1 - Male 3-dose series) 12/22/2019 Meningococcal B Vaccine (1 of 2 - Standard) 2020 Regular Well Visit/Exam 18-64 2022 Pneumococcal vaccine <65 (1 of 2 - PCV) 12/22/2023 Influenza Vaccine (#1) 2024 DTaP/Tdap/Td Vaccine (7 - Td or Tdap) 11/17/2026 11/17/2016, 11/20/2010, 03/25/2006, Additional history exists Hepatitis B Screening Completed 03/25/2006 , 04/24/2005, 02/21/2005 Varicella Vaccines Completed 11/20/2010, 01/02/2006 Meningococcal Vaccine Aged Out 11/17/2016 No herbert ashvin eligible based on patient's age to complete this topic Insurance [facility] [facility] Care Teams Wound Nurse Relationship Specialty Start Date End Date Unknown, Notinfile PCP - General 05/03/24 Tori Cooley MD Family Practice 05/03/24
== END 2025-04-07 17:44 | disposition left against medical advice (07) ==
LOC: ANHED 19:07
DX: Z53.21 Procedure and treatment not carried out due to patient leaving prior to being seen by health care provider (principal)
CPT/HCPCS: 99199